=== PATIENT | female | born 1965 | race Caucasian/White ===

== ENCOUNTER 2017-08-29 07:53 | Outpatient (CLI) ==
--- NOTE | 2017-08-30 08:45 | MAMMO ---
EXAM: Bilateral digital screening mammogram (2-D and 3-D) History: Screening Comparison: Bilateral mammogram 07/15/2015 Findings: MLO and CC views of bilateral breasts demonstrate predominately fatty replaced breast pare nchyma. CAD was reviewed by the radiologist. Tomosynthesis was performed. There are no dominant ma sses, no suspicious microcalcifications and no architectural distortions Impression: Stable negative mammogram. Recommend followup routine screening mammography in 1 year. BIRADS 1
== END 2017-08-29 07:54 | disposition home or self-care (01) ==
LOC: RAD 07:53
PROVIDERS: ATTEND Family Medicine
DX: Z12.31 Encounter for screening mammogram for malignant neoplasm of breast (principal)
CPT/HCPCS: 77067

== ENCOUNTER 2018-12-18 10:44 | Outpatient (CLI) ==
--- NOTE | 2018-12-18 11:43 | DI ---
Exam: Five views of the lumbar spine. Comparison: CT abdomen pelvis performed 08/11/2012. Reason for exam: Low back pain. FINDINGS: No acute fracture or listhesis. There is mild multilevel degenerative disease with interv ertebral body disc space height narrowing and facet hypertrophy most notably at L5-S1. The lumbar lo rdotic curve is relatively well maintained. Impression: 1. No acute fracture or listhesis in the lumbar spine. 2. Degenerative disease most notably at L5-S1 with facet hypertrophy
== END 2018-12-18 10:45 | disposition home or self-care (01) ==
LOC: RAD 10:44
PROVIDERS: ATTEND Family Medicine
DX: M54.5 Low back pain (principal)

== ENCOUNTER 2019-01-22 08:08 | Outpatient (CLI) ==
--- NOTE | 2019-01-23 11:54 | MAMMO ---
EXAM: Digital screening mammogram with tomosynthesis HISTORY: Screening COMPARISON: 08/29/2017 FINDINGS: Digital MLO and CC views of the right and left breast were performed. Tomosynthesis was performed. Computer aided detection utilized. There are scattered fibroglandular densities. There is no evidence for mass, asymmetry, distortion, or suspicious calcifications in either breast. IMPRESSION: 1. No evidence of malignancy in the right or left breast. 2. Annual screening mammogram is recommended in one year. BIRADS category 1, negative examination
== END 2019-01-22 08:09 | disposition home or self-care (01) ==
LOC: RAD 08:08
PROVIDERS: ATTEND Family Medicine
DX: Z12.31 Encounter for screening mammogram for malignant neoplasm of breast (principal)

== ENCOUNTER 2019-01-23 08:00 | Outpatient (RCR) ==
--- NOTE | 2018-12-30 09:16 | RS.OPPTEV2 ---
Date of Note: 12/29/18 Visit #: 1 Number of visits approved by Insurance: n/a Date of Evaluation: 12/29/18 Payer Source: Insurance Surgery Performed?: No Treatment Diagnosis: thoracic back pain, lumbar back pain History of Condition/Mechanism of Injury:: pt reports that her back pain began approx 2-3 weeks ago, no definite injury noted. Has received steriod injections per MD. 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 Functional Limitations: Sleep, Reaching, Pushing, Pulling, Lifting, Carrying, Bending, Squatting, Ambulation Current Subjective/complaints:: pt states that her pain has not improved with medications. States that she wants to get back to work as soon as possible. Treatment Side (optional): Right *Precautions: n/a Medical History Medical History: Hypertension, Arthritis Surgical History: Cholecystectomy, Hysterectomy Smoking Status: Former smoker Hx Home Medications: celexa, lisinopril, steroid dose pack Patient's Goals: Return to work Pain Assessment - Pain Description Pain Location: R lower thoracic/lumbar area Pain Description: Sharp, Aching Current Pain Intensity: 5/10 Worst Pain Intensity: 7/10 Functional Outcome Measure Oswestry LBP: 33 - G Codes & Severity Modifier G Codes & Modifier: n/a Source of G Code score: n/a Observation - Observation Inspection: RLE hamstring and piriformis tightness Posture: Forward Head, Rounded Shoulders, Increased Thoracic Kyphosis, Decreased Lumbar Lordosis Handedness: Right Gait - Gait Pattern Gait Comments: pt amb with guarded flexed posture General Range of Motion: ROM BUE WFL's. BLE WFL's with pain RUE and LE ROM Muscle Strength: RUE: shld flex 4-/5, elbow flex/ext 4+/5. LUE: shld flex 4+/5 , elbow flex/ext 5/5. RLE: hip flex 4-/5, knee flex/ext 4-/5, ankle Df/PF 4/5. LLE: hip flex 4+/5, knee flex/ext 4+/5, ankle DF/PF 4+/5 - ROM Lumbar Flexion: Hand reach to Mid-Thighs Sidebending to Left: Reach to Mid-thigh Sidebending to Right: Reach to Mid-thigh Lumbar Spine ROM Limitations: Soft Tissue Tightness, Muscle Weakness, Pain Comments: pt with increased pain with all lumbar ROM, with worst pain with ext and lat flex - Strength Trunk Extension: 4- Good- Trunk Flexion: 4- Good- Trunk Lateral Flexion: 3- Fair- Trunk Rotation: 3- Fair- - Special Tests SLR Test: Negative Left, Negative Right Seated Dural Stretch Test: Negative Left, Negative Right SI Joint Compression: Negative Palpation Palpation Findings: Tenderness, Trigger Point, Muscle Guarding Comments:: pt with area of tenderness to palpation, muscle guarding with large trigger point noted on R lower thoracic/lumbar area (trigger point at area of waist band of pants on R ) Sensation - Sensation Right Upper Extremity: Intact/Normal Left Upper Extremity: Intact/Normal Right Lower Extremity: Intact/Normal Left Lower Extremity: Intact/Normal Balance - Sitting Balance Static Sitting Balance: Normal Dynamic Sitting Balance: Normal - Standing Balance Static Standing Balance: Good Dynamic Standing Balance: Good - Treatment Modality: Ultrasound Parameters/Method Applied: 1.5w/cm2 x 8 mins Treatment Area: R lower thoracic/lumbar area Patient Position: Left Sidelying - Heat/Cryotherapy Treatment: Hot Pack Comments:: R thoracolumbar area x 20 mins Interventions - Exercise/Activities/Manual Therapy Exercises/Activities: pt performed pelvic tilts, lower trunk rotation, gentle hamstring and piriformis stretches on RLE. Manual Therapy: n/a HOME EXERCISE PROGRAM: pt given written HEP including: pelvic tilt, hamstring stretch, piriformis stretch, lower trunk rotation - Charges Timed Code Treatment Minutes: 46 Total Treatment Time: 61 Procedures billed for this date of service:: eval low, ultrasound, hot pack EVALUATION COMPLEXITY LEVEL EVALUATION COMPLEXITY LEVEL: HISTORY: Low, EXAM OF BODY SYSTEMS: Medium, CLINICAL PRESENTATION: Low, CLINICAL DECISION MAKING: Low Assessment Assessment: pt presents with pain in R lower thoracic lumbar area with muscle guarding, trigger points with limited ROM as well as weakness. Feel pt would benefit from skilled PT for therex for stretching, strengthening as well as modalities to decrease pain. Patient Education: Home Exercise Program, Education of Plan of Care Rehab Potential: Good Short Term Goals Goal #1: pt independent with initial HEP Goal to be met by: 01/19/19 Goal #2: pt with improved lumbar ROM with less pain Goal to be met by: 01/19/19 Goal #3: Decreased RLE hamstring/piriformis tightness equal to LLE Goal to be met by: 01/19/19 Advertising Executive Goals Goal #1: pt rate pain < 3/10 Goal to be met by: 02/09/19 Goal #2: pt demonstrate improved lumbar strength 4/5 w less pain w activity Goal to be met by: 02/09/19 Goal #3: Decreased muscle guarding noted in R thoracolumbar area Goal to be met by: 02/09/19 Plan - Treatment to be Provided Procedures: Therapeutic Exercises, Therapeutic Activity, Manual Therapy, Massage , Patient Education Modalities: Electrical Stimulation, Ultrasound/Phonophoresis, Cryotherapy, Hot Packs - Treatment Plan Frequency: 2-3x a week Duration: 6 weeks Dates of Advertising Executive Goals: 02/09/19 Expiration date of current Insurance Approval:: n/a - Treatment Code (1) Low back pain Code(s): M54.5 - LOW BACK PAIN Qualifiers: Chronicity: chronic Back pain laterality: right Sciatica presence: unspecified whether sciatica present Qualified Code(s): M54.5 - Low back pain ; G89.29 - Other chronic pain (2) Thoracic back pain Code(s): M54.6 - PAIN IN THORACIC SPINE Qualifiers: Chronicity: chronic Back pain laterality: right Qualified Code(s): M54.6 - Pain in thoracic spine; G89.29 - Other chronic pain (3) Muscle tightness Code(s): M62.89 - OTHER SPECIFIED DISORDERS OF MUSCLE (4) Muscle weakness Code(s): M62.81 - MUSCLE WEAKNESS (GENERALIZED)
--- NOTE | 2018-12-31 15:48 | RS.OPPTDN ---
Subjective Date of Note: 12/31/18 Visit #: 2 Number of visits approved by Insurance: pending Date of Evaluation: 12/29/18 Payer Source: Insurance Treatment Diagnosis: thoracic back pain, lumbar back pain Current Subjective/complaints:: Patient reports muscle spasms at the right upper lumbar paraspinals. Also, tenderness at the right S-I joint. *Precautions: n/a Pain Assessment - Pain Description Pain Location: lowback, right S-I Current Pain Intensity: 7/10 prior to, 5/10 following treatment - Treatment Modality: US with ES (Comb.) Parameters/Method Applied: [id number] US at 1.5w/cm2 and Estim to 14p.v. to the right lumbar paraspinals and upper S-I region prior to EX. Patient Position: Left Sidelying - Heat/Cryotherapy Treatment: Hot Pack ([id number] to low to mid back prior to US. Patient in left side-lying. ) Interventions - Exercise/Activities/Manual Therapy Exercises/Activities: Pt performed pelvic tilts. Assisted with SKTC, lower trunk rotation, gentle hamstring and piriformis stretches bilaterally. MET with isometric hip ext on right. Isometric hip add. Total minutes of Exercise: 16mins Manual Therapy: n/a HOME EXERCISE PROGRAM: pt given written HEP including: pelvic tilt, hamstring stretch, piriformis stretch, lower trunk rotation - Charges Timed Code Treatment Minutes: 16mins Total Treatment Time: 40mins Procedures billed for this date of service:: HP, Estim unattended, EX Assessment: Patient attentive to instruction and reports a reduction in pain level. Patient Education: Home Exercise Program Patient demonstrates compliance with HEP?: Yes Short Term Goals Goal #1: pt independent with initial HEP Goal to be met by: 01/19/19 Progress towards Goal:: Progressing Goal #2: pt with improved lumbar ROM with less pain Goal to be met by: 01/19/19 Goal #3: Decreased RLE hamstring/piriformis tightness equal to LLE Goal to be met by: 01/19/19 Senior Care Goals Goal #1: pt rate pain < 3/10 Goal to be met by: 02/09/19 Goal #2: pt demonstrate improved lumbar strength 4/5 w less pain w activity Goal to be met by: 02/09/19 Goal #3: Decreased muscle guarding noted in R thoracolumbar area Goal to be met by: 02/09/19 Plan Dates of Project Technician Goals: 02/09/19 Expiration date of current Insurance Approval:: 02/09/19 PLAN: Continue modalities and progress exercise to reduce pain and increase functional activity level.
--- NOTE | 2019-01-02 09:34 | RS.OPPTDN ---
Subjective Date of Note: 01/02/19 Visit #: 3 Number of visits approved by Insurance: na Date of Evaluation: 12/29/18 Payer Source: Insurance Treatment Diagnosis: thoracic back pain, lumbar back pain Current Subjective/complaints:: Patient reports last session aggravated her back pain. States she continues HEP and to use heat and ice to try to manage pain. She reports muscle spasms in the right lumbar region when working on HEP and with getting up and down from sitting position. *Precautions: n/a Pain Assessment - Pain Description Pain Location: right lowback, S-I region Pain Description: Tightness, Sharp, Aching Current Pain Intensity: mod, increases during the day - Treatment Modality: Electrical Stim Unattended Parameters/Method Applied: [id number] HVGC to 180p.v. with 4 large pads to the bilateral lower lumbar paraspinals and right S-I region with HP prior to EX. Patient Position: Left Sidelying - Heat/Cryotherapy Treatment: Hot Pack (with Estim ) Interventions - Exercise/Activities/Manual Therapy Exercises/Activities: Patient assisted with SKTC, lower trunk rotation, gentle hamstring and piriformis stretches bilaterally. Passive IR/ER of right hip. Isometric hip add. Pelvic tilt. Patient instructed in bridging. MET witheld today with focus on stretching to increase flexibility and reduce muscle tension. Total minutes of Exercise: 16mins Manual Therapy: n/a HOME EXERCISE PROGRAM: pt given written HEP including: pelvic tilt, hamstring stretch, piriformis stretch, lower trunk rotation - Objective Findings Observations,measurements,etc.: Patient demos increased leg legnth on right by approx 1/2", which may indicate pelvic malalignment. Reduced to nearly equal with stretching. - Charges Timed Code Treatment Minutes: 16mins Total Treatment Time: 40mins Procedures billed for this date of service:: HP, Estim unattended, EX Assessment: Changed modalities from US and USCOM to Unatteded Electrical Stimulation in attempt to reduce pain and muscle spasm. Will continue to work on stretching and gentley progress pelvic alignment exercise. Patient Education: Body/Joint mechanics, Home Exercise Program, Home Safety, Activity Modification Comments: Patient education of dx, body mechanics, and safety with ADL's. Also progression of pelvic alignment exercises. Patient demonstrates compliance with HEP?: Yes Short Term Goals Goal #1: pt independent with initial HEP Goal to be met by: 01/19/19 Progress towards Goal:: Progressing Goal #2: pt with improved lumbar ROM with less pain Goal to be met by: 01/19/19 Goal #3: Decreased RLE hamstring/piriformis tightness equal to LLE Goal to be met by: 01/19/19 Progress towards Goal:: Progressing Liquefaction And Regasification Helper Goals Goal #1: pt rate pain < 3/10 Goal to be met by: 02/09/19 Goal #2: pt demonstrate improved lumbar strength 4/5 w less pain w activity Goal to be met by: 02/09/19 Goal #3: Decreased muscle guarding noted in R thoracolumbar area Goal to be met by: 02/09/19 Plan Dates of Fci Goals: 02/09/19 Expiration date of current Insurance Approval:: 02/09/19 PLAN: Continue modalities and exercise to reduce pain and increase patients functional activity level.
--- NOTE | 2019-01-05 10:31 | RS.OPPTDN ---
Subjective Date of Note: 01/05/19 Visit #: 4 Number of visits approved by Insurance: na Date of Evaluation: 12/29/18 Payer Source: Insurance Treatment Diagnosis: thoracic back pain, lumbar back pain Current Subjective/complaints:: Patient states she is starting to see some improvement in pain and mobility with daily activities. *Precautions: n/a Pain Assessment - Pain Description Pain Location: right lowback, right S-I region Pain Description: Burning, Tightness, Aching Current Pain Intensity: 3-4/10 Worst Pain Intensity: 5/10 Other Comments regarding Pain:: Patient reports of 5/10 when pain is elevated. It may be noted that patient demos limitation with bed mobility with positioning for treatment due to pain. - Treatment Modality: Electrical Stim Unattended Parameters/Method Applied: [id number] HVGC to 190-200p.v. with 4 large pads to the bilateral lowback and right S-I joint with HP prior EX. Patient Position: Left Sidelying - Heat/Cryotherapy Treatment: Hot Pack (with Estim ) Interventions - Exercise/Activities/Manual Therapy Exercises/Activities: Patient assisted with SKTC, lower trunk rotation, gentle hamstring and piriformis stretches bilaterally. MET of isometric hip ext on right and isometric hip abd with ER in hook-lying. Passive IR/ER of bilateral hips. Isometric hip add. Pelvic tilt. Bridging. Total minutes of Exercise: 17mins Manual Therapy: n/a HOME EXERCISE PROGRAM: pt given written HEP including: pelvic tilt, hamstring stretch, piriformis stretch, lower trunk rotation - Charges Timed Code Treatment Minutes: 17mins Total Treatment Time: 39mins Procedures billed for this date of service:: HP, Estim unattended, EX Assessment: Patient reporting slow but steady improvement with pain and functional mobility. She appears to consistently be working on HEP. Patient Education: Body/Joint mechanics, Home Exercise Program, Activity Modification Patient demonstrates compliance with HEP?: Yes Short Term Goals Goal #1: pt independent with initial HEP Goal to be met by: 01/19/19 Progress towards Goal:: Progressing Goal #2: pt with improved lumbar ROM with less pain Goal to be met by: 01/19/19 Progress towards Goal:: Progressing Goal #3: Decreased RLE hamstring/piriformis tightness equal to LLE Goal to be met by: 01/19/19 Progress towards Goal:: Progressing Medical Assistant Cardiology Goals Goal #1: pt rate pain < 3/10 Goal to be met by: 02/09/19 Goal #2: pt demonstrate improved lumbar strength 4/5 w less pain w activity Goal to be met by: 02/09/19 Goal #3: Decreased muscle guarding noted in R thoracolumbar area Goal to be met by: 02/09/19 Plan Dates of Alf Goals: 02/09/19 Expiration date of current Insurance Approval:: 02/09/19 PLAN: Continue modalities and progress HEP to reduce pain and and work toward PLOF.
--- NOTE | 2019-01-07 11:09 | RS.OPPTDN ---
Subjective Date of Note: 01/07/19 Visit #: 5 Number of visits approved by Insurance: na Date of Evaluation: 12/29/18 Payer Source: Insurance Treatment Diagnosis: thoracic back pain, lumbar back pain Current Subjective/complaints:: Patient reports slow, but steady improvement. States she saw her physician for a follow-up and is to continue P.T. and be off work an additional 2 weeks. *Precautions: n/a Pain Assessment - Pain Description Current Pain Intensity: 4-5/10 following Rx Other Comments regarding Pain:: Patient is down as low as 3/10 at times, steadily improving. - Treatment Modality: Electrical Stim Unattended Parameters/Method Applied: [id number] HVGC to 210p.v. 4 large pads cross current to the bilateral lumbar paraspinals and right S-I joint with HP prior to EX. Patient Position: Left Sidelying - Heat/Cryotherapy Treatment: Hot Pack (with Estim ) Interventions - Exercise/Activities/Manual Therapy Exercises/Activities: Patient assisted with SKTC, lower trunk rotation, gentle hamstring and piriformis stretches bilaterally. MET of isometric hip ext on right and isometric hip abd with ER in hook-lying. Began isometric left hip abd in hook-lying. Began initial self MET for pelvic alignment with isometric left hip flexion and isometric right hip extension into mat table. IR/ER of bilateral hips, in hook-lying. Isometric hip add. Bridging. Total minutes of Exercise: 13mins Manual Therapy: Manual trigger point release to the right S-I, piriformis. Patient given tennis ball for trigger point release at home. Total minutes of Manual Therapy: 4mins HOME EXERCISE PROGRAM: pt given written HEP including: pelvic tilt, hamstring stretch, piriformis stretch, lower trunk rotation - Charges Timed Code Treatment Minutes: 17mins Total Treatment Time: 40mins Procedures billed for this date of service:: HP, Estim unattended, EX Assessment: Patient responding to treatment and increasing exercise. Patient Education: Education of diagnosis, Body/Joint mechanics, Home Exercise Program, Activity Modification Patient demonstrates compliance with HEP?: Yes Short Term Goals Goal #1: pt independent with initial HEP Goal to be met by: 01/19/19 Progress towards Goal:: Progressing Goal #2: pt with improved lumbar ROM with less pain Goal to be met by: 01/19/19 Progress towards Goal:: Progressing Goal #3: Decreased RLE hamstring/piriformis tightness equal to LLE Goal to be met by: 01/19/19 Progress towards Goal:: Progressing Halfway Goals Goal #1: pt rate pain < 3/10 Goal to be met by: 02/09/19 Progress towards goal: Progressing Goal #2: pt demonstrate improved lumbar strength 4/5 w less pain w activity Goal to be met by: 02/09/19 Goal #3: Decreased muscle guarding noted in R thoracolumbar area Goal to be met by: 02/09/19 Plan Dates of Die Setter Goals: 02/09/19 Expiration date of current Insurance Approval:: 02/09/19 PLAN: Continue modalities and progress exercise to reduce pain and increase functional mobility and activity.
--- NOTE | 2019-01-09 11:04 | RS.OPPTDN ---
Subjective Date of Note: 01/09/19 Visit #: 6 Number of visits approved by Insurance: [id number] Date of Evaluation: 12/29/18 Payer Source: Insurance Treatment Diagnosis: thoracic back pain, lumbar back pain Current Subjective/complaints:: Patient says her back pain is slowly getting better, but it is still present and inhibiting her to return to her [employer] duties. She indicates pain today at the R low back and into the SI joint. *Precautions: n/a - Treatment Modality: Electrical Stim Unattended Parameters/Method Applied: H[place]olt 2 large pads at the R lumbar paraspinals and SI joint @ 245-275pk volts x 20 mins Patient Position: Left Sidelying - Heat/Cryotherapy Treatment: Hot Pack (over the low back and R SI joint with estim) Interventions - Exercise/Activities/Manual Therapy Exercises/Activities: Patient assisted with SKTC, lower trunk rotation, gentle hamstring, figure 4, and piriformis stretches bilaterally. MET of isometric hip ext on right and isometric hip abd with ER in hook-lying. pillow squeezes, isometric hip abd/flexion x10 reps. IR/ER of bilateral hips, in hook-lying. Bridging 2x5. Total minutes of Exercise: 17 Manual Therapy: na HOME EXERCISE PROGRAM: pt given written HEP including: pelvic tilt, hamstring stretch, piriformis stretch, lower trunk rotation - Charges Timed Code Treatment Minutes: 17 Total Treatment Time: 37 Procedures billed for this date of service:: hp, estim (un), ex Assessment: Patient experiencing mild pain relief with treatment, but remains with moderate general pain to the R low back and hip. She has relief with stretches and does david all therex well with exception of bridging causing increase in soreness. Increased rest allowed with bridges. Patient Education: Home Exercise Program, Education of Plan of Care Patient demonstrates compliance with HEP?: Yes Short Term Goals Goal #1: pt independent with initial HEP Goal to be met by: 01/19/19 Progress towards Goal:: Progressing Goal #2: pt with improved lumbar ROM with less pain Goal to be met by: 01/19/19 Progress towards Goal:: Progressing Goal #3: Decreased RLE hamstring/piriformis tightness equal to LLE Goal to be met by: 01/19/19 Progress towards Goal:: Progressing Manager Child Goals Goal #1: pt rate pain < 3/10 Goal to be met by: 02/09/19 Progress towards goal: Progressing Goal #2: pt demonstrate improved lumbar strength 4/5 w less pain w activity Goal to be met by: 02/09/19 Goal #3: Decreased muscle guarding noted in R thoracolumbar area Goal to be met by: 02/09/19 Plan Dates of Manager Child Goals: 02/09/19 Expiration date of current Insurance Approval:: 02/09/19 PLAN: Patient to continue with modaltieis and advance exercises in dept
--- NOTE | 2019-01-13 09:44 | RS.CXNS ---
Date of scheduled appointment: 01/13/19 Type: Cancel (Patient calls to cancel appointment today. Does not give reason.)
--- NOTE | 2019-01-14 10:54 | RS.OPPTDN ---
Subjective Date of Note: 01/14/19 Visit #: 7 Number of visits approved by Insurance: na Date of Evaluation: 12/29/18 Payer Source: Insurance Treatment Diagnosis: thoracic back pain, lumbar back pain Current Subjective/complaints:: Patient reports slow but steady improvement in back and right S-I area pain. States she has more stiffness today as she attempted to increase some light housework yesterday. *Precautions: n/a Pain Assessment - Pain Description Pain Location: right lowback and right S-I joint Pain Description: Tightness, Dull, Aching Current Pain Intensity: moderate - Treatment Modality: Electrical Stim Unattended Parameters/Method Applied: [id number] HVGC to 295 to 310p.v. with 4 large pads to the bilateral lower lumbar paraspinals with HP. Patient Position: Left Sidelying - Heat/Cryotherapy Treatment: Hot Pack (with Estim ) Interventions - Exercise/Activities/Manual Therapy Exercises/Activities: Patient assisted with SKTC, lower trunk rotation, gentle hamstring, figure 4, and piriformis stretches bilaterally. Passive hip IR and ER , bilaterally. MET of isometric hip ext on right, multiple reps. Pillow squeezes and isometric hip flexion. Witheld bridging today. Total minutes of Exercise: 18mins Manual Therapy: na HOME EXERCISE PROGRAM: pt given written HEP including: pelvic tilt, hamstring stretch, piriformis stretch, lower trunk rotation - Charges Timed Code Treatment Minutes: 18mins Total Treatment Time: 42mins Procedures billed for this date of service:: HP, Estim unattended, EX Assessment: Patient attempting to increase functional activities around her home. She is motivated to progress. Patient Education: Body/Joint mechanics, Home Exercise Program Patient demonstrates compliance with HEP?: Yes Short Term Goals Goal #1: pt independent with initial HEP Goal to be met by: 01/19/19 Progress towards Goal:: Progressing Goal #2: pt with improved lumbar ROM with less pain Goal to be met by: 01/19/19 Progress towards Goal:: Progressing Goal #3: Decreased RLE hamstring/piriformis tightness equal to LLE Goal to be met by: 01/19/19 Progress towards Goal:: Partially Met [facility] Goals Goal #1: pt rate pain < 3/10 Goal to be met by: 02/09/19 Progress towards goal: Progressing Goal #2: pt demonstrate improved lumbar strength 4/5 w less pain w activity Goal to be met by: 02/09/19 Goal #3: Decreased muscle guarding noted in R thoracolumbar area Goal to be met by: 02/09/19 Plan Dates of [facility] Goals: 02/09/19 Expiration date of current Insurance Approval:: 02/09/19 PLAN: Continue modalities and progress exercise to reduce pain and increase functional activity level.
--- NOTE | 2019-01-16 11:25 | RS.OPPTDN ---
Subjective Date of Note: 01/16/19 Visit #: 8 Number of visits approved by Insurance: [id number] Date of Evaluation: 12/29/18 Payer Source: Insurance Treatment Diagnosis: thoracic back pain, lumbar back pain Current Subjective/complaints:: Patient says she has increased soreness to the R side of her back. Reports that she is unsure if the weather is affecting it or not. States bridging bothers her the most. States she will be returning to the MD next week and is hopeful she can return to work, but also is anticipating difficulty performing her job. *Precautions: n/a - Treatment Modality: Electrical Stim Unattended Parameters/Method Applied: 4 large pads hivolt vertically along the lumbar paraspinals and SI joints @ 245-275 pk volts x 20 mins - Heat/Cryotherapy Treatment: Hot Pack Comments:: low back and across the R hip Interventions - Exercise/Activities/Manual Therapy Exercises/Activities: Patient assisted with SKTC, lower trunk rotation, gentle hamstring, figure 4, and piriformis stretches bilaterally. Passive hip IR and ER , bilaterally. Patient performs pillow squeezes, isometric hip flexion/abd. Avoided bridging today. Patient had increased pain as therex progressed. Omitted other activities. Encouraged heat at home and stretching. Discussed proper body mechanics as well. Total minutes of Exercise: 13 Manual Therapy: na HOME EXERCISE PROGRAM: pt given written HEP including: pelvic tilt, hamstring stretch, piriformis stretch, lower trunk rotation - Charges Timed Code Treatment Minutes: 13 Total Treatment Time: 33 Procedures billed for this date of service:: hp, estim (un), ex Assessment: Patient presents with more guarded gait and increased back pain specifically to the R lower back and SI joint. Estim was david higher intensity today, but continued with pain during therex. Abbreviated some therex as she was more uncomfortable. 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 SHe is anticipating return to work, but is also hesitant due to continued pain related to job duties. Will fax recent notes to her MD.
--- NOTE | 2019-01-19 12:53 | RS.OPPTDN ---
Subjective Date of Note: 01/19/19 Visit #: 9 Number of visits approved by Insurance: na Date of Evaluation: 12/29/18 Payer Source: Insurance Treatment Diagnosis: thoracic back pain, lumbar back pain Current Subjective/complaints:: Patient reports continued soreness at the right lowback and S-I joint. States she is seeing improvment but it is very slow. States she is trying to do more light activities around her home but is scared to perform any lifting. *Precautions: n/a Pain Assessment - Pain Description Pain Location: right lowback and S-I joint area Pain Description: Tightness, Aching Current Pain Intensity: 3-4/10 Other Comments regarding Pain:: States her pain is low but it is early in the day and she has not done much today. - Treatment Modality: Electrical Stim Unattended Parameters/Method Applied: [id number] HVGC to 295-305p.v. with 4 pads to the right lumbar paraspinals and S-I joint area with HP prior to EX. Patient Position: Left Sidelying - Heat/Cryotherapy Treatment: Hot Pack (with Estim ) Interventions - Exercise/Activities/Manual Therapy Exercises/Activities: Patient assisted with SKTC, lower trunk rotation, gentle hamstring, figure 4, and piriformis stretches bilaterally. Isometric hip add/ pillow squeezes, isometric hip flexion/abd. Began green theraband for resisted bilateral hip abd in hook-lying. MET with isometric hip ext on right and isometric flexion on left. Total minutes of Exercise: 18mins Manual Therapy: na HOME EXERCISE PROGRAM: pt given written HEP including: pelvic tilt, hamstring stretch, piriformis stretch, lower trunk rotation - Objective Findings Observations,measurements,etc.: Patient demos right LE slightly longer than left by 1/2" and corrected with MET. - Charges Timed Code Treatment Minutes: 18mins Total Treatment Time: 42mins Procedures billed for this date of service:: HP, Estim unattended, EX Assessment: Patient continues to work on HEP and attempt to increase her light daily activities at home. She has not progressed to lifting at this time and will need to be able to do this when returning to work. Patient Education: Home Exercise Program, Home Safety, Activity Modification Patient demonstrates compliance with HEP?: Yes Short Term Goals Goal #1: pt independent with initial HEP Goal to be met by: 01/19/19 Progress towards Goal:: Met Goal #2: pt with improved lumbar ROM with less pain Goal to be met by: 01/19/19 Progress towards Goal:: Progressing Goal #3: Decreased RLE hamstring/piriformis tightness equal to LLE Goal to be met by: 01/19/19 Progress towards Goal:: Partially Met [facility] Goals Goal #1: pt rate pain < 3/10 Goal to be met by: 02/09/19 Progress towards goal: Progressing Goal #2: pt demonstrate improved lumbar strength 4/5 w less pain w activity Goal to be met by: 02/09/19 Goal #3: Decreased muscle guarding noted in R thoracolumbar area Goal to be met by: 02/09/19 Plan 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
--- NOTE | 2019-01-21 14:36 | RS.OPPTDN ---
Subjective Date of Note: 01/21/19 Visit #: 10 Number of visits approved by Insurance: na Date of Evaluation: 12/29/18 Payer Source: Insurance Treatment Diagnosis: thoracic back pain, lumbar back pain Current Subjective/complaints:: Patient reports she continues to have pain that limits her ability with daily activity. *Precautions: n/a Pain Assessment - Pain Description Pain Location: right lowback and S-I joint area Current Pain Intensity: 6/10 - Treatment Modality: Electrical Stim Unattended Parameters/Method Applied: [id number] HVGC to 305 p.v. with 4 pads to the right lumbar paraspinals and right S-I joint with HP prior to EX. Patient in supine. Patient Position: Left Sidelying - Heat/Cryotherapy Treatment: Hot Pack (with Estim ) Interventions - Exercise/Activities/Manual Therapy Exercises/Activities: Patient assisted with SKTC, lower trunk rotation, gentle hamstring, figure 4, and piriformis stretches bilaterally. Isometric hip add/ pillow squeezes, isometric hip flexion/abd. Green theraband for resisted bilateral hip abd in hook-lying. MET with isometric hip ext on right and isometric flexion on left. Total minutes of Exercise: 18mins Manual Therapy: na HOME EXERCISE PROGRAM: pt given written HEP including: pelvic tilt, hamstring stretch, piriformis stretch, lower trunk rotation - Objective Findings Observations,measurements,etc.: Hamstring length increased to approx 80 degrees on the right and 88 to 90 degrees on the left. - Charges Timed Code Treatment Minutes: 18mins Total Treatment Time: 42mins Procedures billed for this date of service:: HP, Estim unattended, EX Assessment: Patient progressing with functional activity level but states it is slow and she is not doing any lifting. Patient Education: Home Exercise Program, Activity Modification Patient demonstrates compliance with HEP?: Yes Short Term Goals Goal #1: pt independent with initial HEP Goal to be met by: 01/19/19 Progress towards Goal:: Met Goal #2: pt with improved lumbar ROM with less pain Goal to be met by: 01/19/19 Progress towards Goal:: Progressing Goal #3: Decreased RLE hamstring/piriformis tightness equal to LLE Goal to be met by: 01/19/19 Progress towards Goal:: Partially Met Spiritual Advisor Goals Goal #1: pt rate pain < 3/10 Goal to be met by: 02/09/19 Progress towards goal: Progressing Goal #2: pt demonstrate improved lumbar strength 4/5 w less pain w activity Goal to be met by: 02/09/19 Goal #3: Decreased muscle guarding noted in R thoracolumbar area Goal to be met by: 02/09/19 Plan Dates of [facility] Goals: 02/09/19 Expiration date of current Insurance Approval:: 02/09/19 PLAN: Continue modalities and exercise to reduce pain and increase ADL's.
--- NOTE | 2019-01-23 09:57 | RS.OPPTDN ---
Subjective Date of Note: 01/23/19 Visit #: 11 Number of visits approved by Insurance: na Date of Evaluation: 12/29/18 Payer Source: Insurance Treatment Diagnosis: thoracic back pain, lumbar back pain Current Subjective/complaints:: Patient reports continued improvement in ability to perform light activity around her home. States right S-I continues to be painful and she is using the tennis ball for trigger point release as instructed. States she still has been unable to lift any items that are moderate to heavy in weight. *Precautions: n/a Pain Assessment - Pain Description Pain Location: Right S-I joint and lumbar paraspinals. Current Pain Intensity: mild Worst Pain Intensity: mod - Treatment Modality: Electrical Stim Unattended Parameters/Method Applied: [id number] HVGC to 205p.v. 4 large pads to the right lower lumbar paraspinals and S-I joint with HP. Patient Position: Left Sidelying - Heat/Cryotherapy Treatment: Hot Pack (with Estim) Interventions - Exercise/Activities/Manual Therapy Exercises/Activities: Assisted SKTC, hamstring, and piriformis stretches bilaterally. MET with mery right hip extension, and then right hip ext with left hip flexion(with and without therapist assist). Isometric hip add/pillow squeezes, isometric hip flexion.. Increased to blue theraband for resisted bilateral hip abd in hook-lying. Ended with bridging. Total minutes of Exercise: 17mins Manual Therapy: na HOME EXERCISE PROGRAM: pt given written HEP including: pelvic tilt, hamstring stretch, piriformis stretch, lower trunk rotation, green theraband resisted hip abd in hook-lying - Charges Timed Code Treatment Minutes: 17mins Total Treatment Time: 42mins Procedures billed for this date of service:: HP, Estim unattended, EX Assessment: Patient progressing with treatment but continues to have pain that limits lifting. 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
== END 2019-01-27 23:59 ==
PROVIDERS: ATTEND Family Medicine
DX: M54.5 Low back pain (principal); M54.6 Pain in thoracic spine; G89.29 Other chronic pain

== ENCOUNTER 2019-02-09 11:00 | Outpatient (RCR) ==
--- NOTE | 2019-01-29 09:27 | RS.OPPTDN ---
Subjective Date of Note: 01/29/19 Visit #: 12 Number of visits approved by Insurance: na Date of Evaluation: 12/29/18 Payer Source: Insurance Treatment Diagnosis: thoracic back pain, lumbar back pain Current Subjective/complaints:: Patient reports she had increased pain again yesterday after standing for several minutes. Patient states she was notified yesterday that her MRI was scheduled for this morning. States reports she is upset that improvement in back pain seems to have reached a stand-still. *Precautions: n/a Pain Assessment - Pain Description Pain Location: lowback, right S-I joint Pain Description: Aching Current Pain Intensity: 4/10 Worst Pain Intensity: 5-6/10 with standing day before yesterday. - Treatment Modality: Electrical Stim Unattended Parameters/Method Applied: [id number] HVGC to 320p.v. with 4 large pads cross current to the right lower lumbar paraspinals and right S-I/glut region with HP prior to EX. Patient Position: Left Sidelying - Heat/Cryotherapy Treatment: Hot Pack (with Estim ) Interventions - Exercise/Activities/Manual Therapy Exercises/Activities: Assisted SKTC, hamstring, and piriformis stretches bilaterally. MET with right hip extension, right hip ER. Then right hip ext with left hip flexion, with therapist assist. Additional bilateral hamstring and piriformis stretching. Isometric hip add/pillow squeezes, isometric hip flexion.. Bridging. Total minutes of Exercise: 15mins Manual Therapy: na HOME EXERCISE PROGRAM: pt given written HEP including: pelvic tilt, hamstring stretch, piriformis stretch, lower trunk rotation, green theraband resisted hip abd in hook-lying - Charges Timed Code Treatment Minutes: 15mins Total Treatment Time: 37mins Procedures billed for this date of service:: HP, Estim unattended, EX Assessment: Patient has reported improvement, but progress seems to be at a stand-still at this time. She has progressed wtih exercise, but has not been able to return to all ADL's including lifting which is required in her job duties. Patient Education: Body/Joint mechanics, Home Exercise Program Patient demonstrates compliance with HEP?: Yes Short Term Goals Goal #1: pt independent with initial HEP Goal to be met by: 01/19/19 Progress towards Goal:: Met Goal #2: pt with improved lumbar ROM with less pain Goal to be met by: 01/19/19 Progress towards Goal:: Progressing Goal #3: Decreased RLE hamstring/piriformis tightness equal to LLE Goal to be met by: 01/19/19 Progress towards Goal:: Met Head Of Integrated [employer] Goals Goal #1: pt rate pain < 3/10 Goal to be met by: 02/09/19 Progress towards goal: Progressing Goal #2: pt demonstrate improved lumbar strength 4/5 w less pain w activity Goal to be met by: 02/09/19 Progress towards goal: Progressing Goal #3: Decreased muscle guarding noted in R thoracolumbar area Goal to be met by: 02/09/19 Progress towards goal: Progressing Plan Dates of Head Of Integrated Media Goals: 02/09/19 Expiration date of current Insurance Approval:: 02/09/19 PLAN: Hold treatment at this time and patient has completed initial orders and will be having an MRI. Hold chart pending follow-up appointment with physician.
--- NOTE | 2019-02-10 10:42 | RS.OPPTDC ---
Date of Discharge: 02/09/19 Date of Evaluation: 12/29/18 Number of Visits: 13 Treatment Diagnosis: thoracic back pain, lumbar back pain Current Level of Function: pt continues with low back pain and R SI joint pain. Pain is currently 4/10. pt is independent with HEP. Continues to have lifting restriction due to pain as well as ordered by MD. Current Complaints/Gains: pt states she did undergo MRI and reports that they told her she has "mild bulging disc". pt states MD ordered for her not to return to work until her next appt which is not until February. pt verbalzed understanding that her insurance allows 30 PT visits per year. Reports she is awaiting an appt with neurosurgeon. Pain Assessment - Pain Description Pain Location: lumbar, R SI joint Pain Description: Aching Current Pain Intensity: 4/10 Functional Outcome Measure Oswestry LBP: 23 (as of 01/21/19) - G Codes & Severity Modifier G Codes & Modifier: n/a Source of G Code score: n/a Observation - Observation Posture: Forward Head, Rounded Shoulders, Increased Thoracic Kyphosis, Decreased Lumbar Lordosis Handedness: Right Gait - Gait Pattern Gait Comments: pt amb without AD with slight flexed posture General Range of Motion: BUE WFL's. BLE WFL's Muscle Strength: BUE 5/5. BLE 4+/5 - Treatment Modality: US with ES (Comb.) Parameters/Method Applied: 1.5w/cm2 and 8-9pv x 12 mins Treatment Area: lumbar R SI joint Patient Position: Left Sidelying - Heat/Cryotherapy Treatment: Hot Pack Comments:: lumbar Interventions - Exercise/Activities/Manual Therapy Exercises/Activities: pt performed prone lying, prone on elbows with modified press up Manual Therapy: na HOME EXERCISE PROGRAM: Added prone ex including: prone lying, prone on elbows, modified press up, instruced on mod alternating leg lift. - Charges Timed Code Treatment Minutes: 24 Total Treatment Time: 58 Procedures billed for this date of service:: u/s estim combo, HP, ex, Assessment Assessment: pt has reached a plateau with progress. pt has had 13 visits of PT and has demonstrated limited improvement with pain, flexibility, as well as strength. Due to limited progress and limited number of visits per year by insurance, will DC PT. Advised pt after appt with neuro MD if he orders we could do new eval at that time. Patient Education: Home Exercise Program, Education of Plan of Care Rehab Potential: Good Short Term Goals Goal #1: pt independent with initial HEP Goal to be met by: 01/19/19 Progress towards Goal:: Met Goal #2: pt with improved lumbar ROM with less pain Goal to be met by: 01/19/19 Progress towards Goal:: Progressing Goal #3: Decreased RLE hamstring/piriformis tightness equal to LLE Goal to be met by: 01/19/19 Progress towards Goal:: Met [facility] Goals Goal #1: pt rate pain < 3/10 Goal to be met by: 02/09/19 Progress towards goal: Not Met Goal #2: pt demonstrate improved lumbar strength 4/5 w less pain w activity Goal to be met by: 02/09/19 Progress towards goal: Not Met Goal #3: Decreased muscle guarding noted in R thoracolumbar area Goal to be met by: 02/09/19 Progress towards goal: Not Met Plan Comments: pt has reached plateau with progress, pt awaiting appt with neuro MD.
== END 2019-02-27 23:59 ==
PROVIDERS: ATTEND Family Medicine
DX: M54.41 Lumbago with sciatica, right side (principal); G89.29 Other chronic pain; M54.6 Pain in thoracic spine